=== PATIENT | female | born 1995 | race Caucasian/White ===

== ENCOUNTER 2020-03-14 09:33 | Emergency (ER) | payer OTHER ==
[~2020-03-14] VITALS: Ht 160 cm; Wt 59.1 kg
[2020-03-14 09:57] VITALS: BP 118/71
[2020-03-14] MEDS ORDERED: CEPH500C5 PO (10:51)
== END 2020-03-14 11:06 | disposition home or self-care (01) ==
LOC: ER 09:34
DX: L03.313 Cellulitis of chest wall (principal); F41.9 Anxiety disorder, unspecified; F12.90 Cannabis use, unspecified, uncomplicated; Z72.89 Other problems related to lifestyle; Z79.2 Long term (current) use of antibiotics
CPT/HCPCS: 99283